=== PATIENT | female | born 1980 | race Caucasian/White ===

== ENCOUNTER 2017-08-09 03:02 | Emergency (ER) | END 2017-08-09 06:16 | disposition home or self-care (01) ==

== ENCOUNTER 2017-08-22 22:35 | Emergency (ER) | END 2017-08-23 04:34 | disposition home or self-care (01) ==

== ENCOUNTER 2018-01-31 02:19 | Emergency (ER) | END 2018-01-31 05:09 | disposition home or self-care (01) ==

== ENCOUNTER 2018-02-02 15:33 | Emergency (ER) | END 2018-02-02 15:43 | disposition left against medical advice (07) ==

== ENCOUNTER 2018-02-02 17:17 | Inpatient (IN) | END 2018-02-05 16:00 | disposition home or self-care (01) | DRG 418 ==